=== PATIENT | female | born 1975 | race African-American/Black ===

== ENCOUNTER 2016-05-31 13:08 | Emergency (ER) | payer BC ==
[~2016-05-31 13:08] MED LIST: ACET325S8 PO; ESTR1 PO; PREN27TA4 PO; [UNRECOGNIZED DRUG - CODE] VAGINAL
[2016-05-31 13:54] VITALS: BP 104/63; PULSE 97
[2016-05-31 13:55] VITALS: RESP 20
--- NOTE | 2016-05-31 13:56 | PD ---
HPI Chief Complaint "Low TATO" Date Seen: May 31, 2016 Time Seen: 13:52 Travel History International Travel<30 Days: No Contact w/Intl Traveler<30Days: No Known Affected Area: No History of Present Illness HPI This is a 41y/o at 32w1d with TIUP who presents from Dr. Escamilla's office due to low TATO on office ultrasound (A 4.4, B6.5) Para: 1 : 3 Miscarriage: 1 History Past Medical History Medical History: Denies Significant Hx Obstetric History Obstetric History SAB at 11w 03/02/99 41w , Male [id number] Past Surgical History Narrative Surgical 07/2015 Myomectomy Family History Family History: Negative Social History Alcohol Use: No Tobacco Use: No Substance Abuse: No Allergies-Medications (Allergen,Severity, Reaction): Coded Allergies: No Known Allergies (Unverified , 11/23/15) Home Meds Active Scripts Acetaminophen (Tylenol)325 Mg Ple048 Mg PO Q6HR PRN (PAIN SCALE 1 TO 4) #20 TAB Prov:Annie Cooper DO 11/23/15 Reported Medications Vit W/ Ferrous Fumara ()1 Tab Tab1 Tab PO DAILY 11/23/15 Estradiol (Estrace)1 Mg Tab3 Mg PO BID 11/23/15 Progesterone (Vaginal) (Crinone)8 % Gel8 % Vaginal Bid 11/23/15 Review of Systems Except as stated in HPI: all other systems reviewed are Neg Physical Exam Narrative GENERAL: Well-nourished, well-developed patient. SKIN: Warm and dry. HEAD: Normocephalic and atraumatic. EYES: No scleral icterus. No injection or drainage. ENT: No nasal drainage noted. Mucous membranes pink. Airway patent. NECK: Supple, trachea midline. No JVD. CARDIOVASCULAR: Regular rate and rhythm without murmurs, gallops, or rubs. RESPIRATORY: Breath sounds equal bilaterally. No accessory muscle use. BREASTS: Bilateral exam showed no masses , no retractions, no nipple discharge. ABDOMEN/GI: Abdomen soft, non-tender, bowel sounds present, no rebound, no guarding Gravid to 32 weeks size Fundal Height: 35 GENITOURINARY: Cervical exam deferred Uterine Contractions: None FHT's: Category: 1 tracing times 2 EXTREMITIES: No cyanosis or edema. BACK: Nontender without obvious deformity. No CVA tenderness. NEUROLOGICAL: Awake and alert. Motor and sensory grossly within normal limits. Five out of 5 muscle strength in all muscle groups. Normal speech. Data Data Vital Signs Reviewed: Yes Orders Vital Signs (Adult) .ON ADMISSION (05/31/16 13:49) ^ Labor Status (05/31/16 13:49) ^ Non Stress Test (05/31/16 13:49) MDM Medical Record Reviewed: Yes Interpretation(s) Normal care other than AMA. Narrative Course / MDM Reactive NST. Pt with no complaints. Plan F/u with Dr. Escamilla on as scheduled. Procedure Narrative heart tracing reactive/reassuring times 2, Cat 1 tracing times 2. Diagnosis Diagnosis: Primary Impression: Twin Qualified Code: O30.043 - Dichorionic diamniotic twin in third trimester Additional Impressions: with history of uterine myomectomy TATO (amniotic fluid index) borderline low Disposition: 01 DISCHARGE HOME Condition: Good Patient Instructions: Movement (ED) Additional Instructions: f/u with Dr. Escamilla on as scheduled. Departure Forms: Tests/Procedures Jennifer Shaffer MD May 31, 2016 13:55
== END 2016-05-31 15:29 | disposition home or self-care (01) ==
LOC: HOBED 13:08
DX: O30.049 Twin pregnancy, dichorionic/diamniotic, unspecified trimester (principal); O41.03X0 Oligohydramnios, third trimester, not applicable or unspecified
CPT/HCPCS: 59025